=== PATIENT | male | born 2000 | race Caucasian/White ===

== ENCOUNTER 2023-12-20 18:43 | Emergency (ER) | payer OTHER, SELFPAY ==
[2023-12-20 19:03] VITALS: BP 125/78; PULSE 58; RESP 18; TEMP 36.9; O2SAT 99; BMI 22.9
--- NOTE | 2023-12-20 19:44 | DI.RAD.S_ITS ---
PROCEDURE: XR HAND RT MIN 3V INDICATIONS: crush injury TECHNIQUE: Four views of the hand acquired. COMPARISON: None. FINDINGS: Bones: No acute fractures or dislocations. Carpal bones are normally aligned. No suspicious bony lesions. Soft tissues: No suspicious soft tissue calcifications. Mild soft tissue edema is seen in the thumb. IMPRESSION: No acute osseous abnormality. If there is continued clinical concern or persistent symptoms, repeat radiographs or cross-sectional imaging (e.g. CT, MRI) may be helpful for further evaluation. Approved by: Aubrey Mendez M.D. on 12/20/2023 at 20:17
--- NOTE | 2023-12-20 19:44 | ED.UPPEXIN ---
HPI - Extremity Injury (Upper) General Chief Complaint: Extremity Injury, Upper Stated Complaint: wants blister under thumnail drained Time Seen by Provider: 12/20/23 18:52 Source: patient Mode of arrival: Ambulatory History of Present Illness HPI narrative: 23-year-old male presents for drainage of right thumb subungual hematoma. 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 He is up-to-date on his tetanus shot. Review of Systems Review of Systems Narrative: See HPI Patient History alcohol intake frequency: holidays/special occasions only Substance Use Type: does not use Exam Initial Vital Signs Initial Vital Signs: Vital Signs Temperature 98.5 F 12/20/23 19:03 Pulse Rate 58 L 12/20/23 19:03 Respiratory Rate 18 12/20/23 19:03 Blood Pressure 125/78 12/20/23 19:03 Pulse Oximetry 99 12/20/23 19:03 Oxygen Delivery Method Room Air 12/20/23 19:03 Const: Awake, alert, no acute distress, nontoxic appearing MSK: Subungual hematoma right thumb without nail bed injury Skin: Warm, Dry, superficial abrasion adjacent to right thumbnail without laceration Neuro: AO x3, CN II-XII grossly intact, moves all extremities Procedures Nail Trephination Location (finger): right and thumb Sterile prep: betadine Method of drainage: nail cautery Procedure successful: Yes Patient tolerated procedure: well and no complications Course Orders Ordered: ED Orders 12/20/23 19:44 XR hand RT min 3V Stat Vital Signs Vital signs: Vital Signs - 8 hr 12/20/23 19:03 12/20/23 19:45 Temperature 98.5 F Pulse Rate 58 L 69 Respiratory Rate 18 Blood Pressure 125/78 130/82 Pulse Oximetry 99 100 Oxygen Delivery Method Room Air Room Air MDM - Extremity Injury (Upper) Differential Diagnosis Differential diagnosis: Likely finger sprain, dislocation of finger and fracture of hand MDM Narrative Medical decision making narrative: Subungual hematoma after slamming finger against drywall. Trephinated with drainage of blood and relief of pressure. Nail bed is intact. X-ray showed no acute fracture. L and I paperwork filled out Discharge Plan Departure Patient Disposition: Home Clinical Impression: Hematoma, subungual, thumb, right Instructions: DI for Subungual Hematoma Activity Restrictions/Additional Instructions: Soak your finger in warm clean water 2 to 3 times a day for a week. Wear a Band-Aid over the affected finger when working. Stand Alone Forms: Patient Portal/API
[2023-12-20 19:45] VITALS: BP 130/82; PULSE 69; O2SAT 100
--- NOTE | 2023-12-20 19:45 | PC.NURSE ---
pt states he smashed his finger in some drywall sheets at work. took 6 ibuprofen right away and has iced it throughout the day. he was seen at the walk in clinic and sent to ER for xrays in case finger was broken. no loss of sensation on finger tip and able to move all joints, though limited due to pain
== END 2023-12-20 20:13 | disposition home or self-care (01) ==
PROVIDERS: Emergency Provider Emergency Medicine
DX: S60.111A Contusion of right thumb with damage to nail, initial encounter (principal); W23.0XXA Caught, crushed, jammed, or pinched between moving objects, initial encounter
CPT/HCPCS: 11740; 73130; 99281; 99283

== ENCOUNTER 2024-02-10 18:30 | Emergency (ER) | payer OTHER, SELFPAY ==
[2024-02-10 18:46] VITALS: BP 131/74; PULSE 86; RESP 16; TEMP 37; O2SAT 99; BMI 22.3
--- NOTE | 2024-02-10 18:49 | DI.RAD.S_ITS ---
PROCEDURE: XR FINGER RT MIN 2V INDICATIONS: thinks he smashed it TECHNIQUE: AP hand, 2 views of the 2nd finger(s) acquired. COMPARISON: X-ray right hand, 12/21/2023. FINDINGS: Bones: No fractures or dislocations. No suspicious bony lesions. Soft tissues: No suspicious soft tissue calcifications. IMPRESSION: No acute bony abnormality. If clinical symptoms persist or clinical suspicion for pathology is high, a repeat examination in 7-10 days is suggested for further evaluation. Dictated by: Chanel Ch M.D. on 02/10/2024 at 19:38 Approved by: Chanel Ch M.D. on 02/10/2024t 19:39
--- NOTE | 2024-02-10 20:32 | ED_ITS ---
HPI - General Adult General Chief complaint: Extremity Injury, Upper Stated complaint: right index finger pain Time Seen by Provider: 02/10/24 20:12 Source: patient Mode of arrival: Ambulatory History of Present Illness HPI narrative: 23-year-old male here evaluation redness and discomfort to the tip of his right index finger. He thinks that potentially he could have hit when he was working on his truck a couple days ago. No fevers. No drainage from the area. Related Data Previous Rx's Medication Instructions Recorded cephalexin 500 mg capsule 500 mg PO QID 5 days #20 caps 02/10/24 Allergies Allergy/AdvReac Type Severity Reaction Status Date / Time No Known Drug Allergies Allergy Verified 02/10/24 18:48 Review of Systems Musculoskeletal Musculoskeletal: Reports system reviewed and no additional complaints, except as documented Integumentary/Breasts Skin/Breast: Reports system reviewed and no additional complaints, except as documented Neurologic Neurologic: Reports system reviewed and no additional complaints, except as documented Patient History alcohol intake frequency: holidays/special occasions only Substance Use Type: does not use Exam Initial Vital Signs Initial Vital Signs: Vital Signs Temperature 98.6 F 02/10/24 18:46 Pulse Rate 86 02/10/24 18:46 Respiratory Rate 16 02/10/24 18:46 Blood Pressure 131/74 02/10/24 18:46 Pulse Oximetry 99 02/10/24 18:46 Oxygen Delivery Method Room Air 02/10/24 18:46 Skin Other: Erythema noted to the distal aspect of the right index finger specifically on the dorsum. Extrem Other: Swelling and redness to the right index finger. All of the findings or distal to the DIPJ joint. There was no nail bed involvement. Course Orders Ordered: ED Orders 02/10/24 18:49 XR finger RT min 2V Stat Discontinued Medications Cephalexin HCl (Cephalexin 250 Mg Capsule) 500 mg PO NOW ONE Stop: 02/10/24 20:33 Last Admin: 02/10/24 20:40 Dose: 500 mg Documented By: GEORGINA Vital Signs Vital signs: Vital Signs - 8 hr 02/10/24 18:46 02/10/24 20:49 Temperature 98.6 F Pulse Rate 86 63 Respiratory Rate 16 16 Blood Pressure 131/74 129/71 Pulse Oximetry 99 99 Oxygen Delivery Method Room Air Room Air Medical Decision Making Imaging Data Extremity x-ray #1: Radiologist's Impression: PROCEDURE: XR FINGER RT MIN 2V INDICATIONS: thinks he smashed it TECHNIQUE: AP hand, 2 views of the 2nd finger(s) acquired. COMPARISON: X-ray right hand, 12/21/2023. FINDINGS: Bones: No fractures or dislocations. No suspicious bony lesions. Soft tissues: No suspicious soft tissue calcifications. IMPRESSION: No acute bony abnormality. If clinical symptoms persist or clinical suspicion for pathology is high, a repeat examination in 7-10 days is suggested for further evaluation. [facility] Narrative Medical decision making narrative: X-ray shows no signs of fracture. His exam is most consistent with a paronychia but there is some surrounding erythema consistent with cellulitis. He has a soft pad of the finger so I have low suspicion for Felon. Was able to drain a small amount of purulent material from the area. Because of the surrounding erythema will place him on antibiotics. First dose given here in the ER. He was given return precautions and follow-up instructions. He expressed understanding and agreement. Discharge Plan Departure Patient Disposition: Home Clinical Impression: Paronychia Instructions: DI for Paronychia Activity Restrictions/Additional Instructions: Take the antibiotics as directed. I do recommend that you keep your hands clean with soap and water. Return to the emergency department for new or worsening symptoms. Prescriptions: New cephalexin 500 mg capsule 500 mg PO QID 5 Days Qty: 20 0RF Stand Alone Forms: Patient Portal/API
[2024-02-10] MEDS: cephALEXin 250 MG CAPSULE 500 MG PO (20:40)
[2024-02-10 20:49] VITALS: BP 129/71; PULSE 63; RESP 16; O2SAT 99
== END 2024-02-10 20:51 | disposition home or self-care (01) ==
PROVIDERS: Emergency Provider Emergency Medicine
DX: L03.011 Cellulitis of right finger (principal)
CPT/HCPCS: 73140; 99283

== ENCOUNTER 2024-10-02 13:40 | Emergency (ER) | payer OTHER, SELFPAY ==
[2024-10-02 13:47] VITALS: BP 126/73; PULSE 55; RESP 18; TEMP 36.9; O2SAT 100; BMI 22.3
--- NOTE | 2024-10-02 14:07 | ED.WOUNDLAC ---
HPI - Wound/Laceration <Toyin Christensen PA-C - Last Filed: 10/02/24 14:47> General Chief Complaint: Wound/Laceration Stated Complaint: R Arm Laceration Time Seen by Provider: 10/02/24 13:56 Source: patient Mode of arrival: Ambulatory History of Present Illness HPI narrative: 24-year-old male presents with a right arm laceration. He was using a knife to cut a zip tie on a new tool bag. The knife slipped and entered his right forearm. He grabbed it immediately with his hand to control the bleeding. He is left-handed dominant, he is denying any numbness, tingling or loss of sensation, no weakness of the hand, he does admit to being a little squamous when it comes to bleeding he states initially he felt he had an adrenaline [place] but feels better. He is denying any nausea. He is here with his girlfriend's mother. All other systems are reviewed and are negative. Per his records his tetanus is up-to-date as of December 2023 encounter in the emergency department. Related Data Allergies Allergy/AdvReac Type Severity Reaction Status Date / Time No Known Drug Allergies Allergy Verified 02/10/24 18:48 Review of Systems <Toyin Christensen PA-C - Last Filed: 10/02/24 14:47> Review of Systems Narrative: All other systems reviewed and are negative. Patient History <Toyin Christensen PA-C - Last Filed: 10/02/24 14:47> Social History Smoking Status: Never smoker Smoking Status: Never smoker alcohol intake frequency: holidays/special occasions only Exam <Toyin Christensen PA-C - Last Filed: 10/02/24 14:47> Initial Vital Signs Initial Vital Signs: Vital Signs Temperature 98.5 F 10/02/24 13:47 Pulse Rate 55 L 10/02/24 13:47 Respiratory Rate 18 10/02/24 13:47 Blood Pressure 126/73 10/02/24 13:47 Pulse Oximetry 100 10/02/24 13:47 Oxygen Delivery Method Room Air 10/02/24 13:47 Vital signs reviewed and are normal. Const General: cooperative, healthy appearing, comfortable, well developed, well groomed and No acute distress Resp Effort & Inspection: normal respiratory effort and able to speak in complete sentences Auscultation: clear to auscultation bilaterally Cardio Rate: regular rate Rhythm: regular rhythm Skin Other: 1 in linear laceration anterior mid forearm on the right. Subcutaneous fat is seen, small arterial spurter, intermittent, otherwise no active bleeding. No foreign body seen. Neuro Other: Distal neurovascular is grossly intact on the right hand, pinch mechanism is intact. Extrem Right upper extremity: full ROM, normal capillary refill and elbow/forearm Details: normal ROM and laceration (1 in separation anterior mid forearm subcutaneous fat showing no deeper structures); no swelling and no abrasions; no cyanosis and no edema Other: He has full strength against resistance with flexion and extension of his wrist, pinch mechanism is intact, full range of motion to all of his digits, abduction adduction are intact, opposition also intact. <Ruthy Saldivar MD - Last Filed: 10/02/24 15:19> Initial Vital Signs Initial Vital Signs: Vital Signs Temperature 98.5 F 10/02/24 13:47 Pulse Rate 55 L 10/02/24 13:47 Respiratory Rate 18 10/02/24 13:47 Blood Pressure 126/73 10/02/24 13:47 Pulse Oximetry 100 10/02/24 13:47 Oxygen Delivery Method Room Air 10/02/24 13:47 Procedures <Toyin Christensen PA-C - Last Filed: 10/02/24 14:47> Laceration Repair Laceration 1: Site: upper extremity (Right anterior forearm) Side (If applicable): right Size (cm): 2 Description: linear Depth: simple, single layer Local Anesthetic: lidocaine 1% Amount of anesthesia used (mL): 2.5 Pre-repair: wound explored, irrigated extensively and deep structures intact Skin layer closed with: nylon (4-0) Skin layer suture size: 4-0 Number of sutures: 3 Technique: simple, interrupted Subcutaneous layer closed with: vicryl Subcutaneous layer suture size: 4-0 Number of sutures: 3 Technique: simple, interrupted Course <Toyin Christensen PA-C - Last Filed: 10/02/24 14:47> Course Course Narrative: Wound was clean, no foreign body, he tolerated the procedure well, no deeper structures, no tendon involvement. His tetanus is up-to-date. Dressing was applied by this provider a nonadherent dressing, roller gauze and stockinette. Orders Ordered: Discontinued Medications Lidocaine HCl (Lidocaine 1% 20 Ml) 5 ml INJ INTRA-OP ONE Stop: 10/02/24 14:08 Last Admin: 10/02/24 14:12 Dose: Not Given Documented By: KRISTI Lidocaine HCl (Lidocaine 1% (Pf) 5 Ml) 5 ml INJ NOW ONE Stop: 10/02/24 14:11 Last Admin: 10/02/24 14:11 Dose: 5 ml Documented By: KRISTI Vital Signs Vital signs: Vital Signs - 8 hr 10/02/24 13:47 Temperature 98.5 F Pulse Rate 55 L Respiratory Rate 18 Blood Pressure 126/73 Pulse Oximetry 100 Oxygen Delivery Method Room Air <Ruthy Saldivar MD - Last Filed: 10/02/24 15:19> Orders Ordered: Discontinued Medications Lidocaine HCl (Lidocaine 1% 20 Ml) 5 ml INJ INTRA-OP ONE Stop: 10/02/24 14:08 Last Admin: 10/02/24 14:12 Dose: Not Given Documented By: KRISTI Lidocaine HCl (Lidocaine 1% (Pf) 5 Ml) 5 ml INJ NOW ONE Stop: 10/02/24 14:11 Last Admin: 10/02/24 14:11 Dose: 5 ml Documented By: KRISTI Vital Signs Vital signs: Vital Signs - 8 hr 10/02/24 13:47 Temperature 98.5 F Pulse Rate 55 L Respiratory Rate 18 Blood Pressure 126/73 Pulse Oximetry 100 Oxygen Delivery Method Room Air Discharge Plan Departure Patient Disposition: Home Clinical Impression: Laceration Instructions: DI for Laceration Repair Activity Restrictions/Additional Instructions: Leave the current dressing on for the next 24-48 hours then take it down, please keep it dry during this time, elevate minimize throbbing or pain, you can take Tylenol or ibuprofen as needed for pain. Once you remove the dressing, you may gently cleanse, just no swimming or submersion. Cover with a regular bandage during the day, you may air dry at night. I would avoid any heavy lifting and limit your use of the right arm for at least the 1st 2 days. Sutures should come out in about 7-10 days. You may return here or our walk-in clinic or any medical clinic or your PCP. Please do not hesitate to return if you have any increased pain, swelling, bleeding, any warmth to the area, you feel unwell or have any other new worrisome symptoms. Stand Alone Forms: Patient Portal/API/Survey, Work Release Note ED Sign-out <Ruthy Saldivar MD - Last Filed: 10/02/24 15:19> Cosign ED Attending Cosignature Attestation: I was immediately available in the department for consultation throughout this patient's visit. Ruthy Saldivar MD
[2024-10-02] MEDS: LIDOCAINE 1% (PF) 5 ML INJ (14:11)
== END 2024-10-02 14:47 | disposition home or self-care (01) ==
PROVIDERS: Emergency Provider Physician Assistant Medical
DX: S51.811A Laceration without foreign body of right forearm, initial encounter (principal); W26.0XXA Contact with knife, initial encounter; Y93.89 Activity, other specified
CPT/HCPCS: 12031; 99283

== ENCOUNTER → 2024-12-29 14:04 | Outpatient (CLI) | payer SELFPAY ==
[2024-12-29 15:22] LABS: Influenza A - CEPHEID Flu A NEGATIVE (NEGATIVE); Influenza B - CEPHEID Flu B NEGATIVE (NEGATIVE); Respiratory Syncytial Virus Negative (Negative)
[2024-12-29 15:24] LABS: COVID-19 CEPHEID 4-PLEX PCR Negative (Negative)
== END ==
PROVIDERS: Visit Provider Physician Assistant Surgical
DX: J35.1 Hypertrophy of tonsils (principal)
CPT/HCPCS: 0241U; 87070; 87147

== ENCOUNTER 2025-03-11 18:15 | Emergency (ER) | payer BC, SELFPAY ==
[2025-03-11 18:18] VITALS: BP 144/88; PULSE 62; RESP 16; TEMP 36.8; O2SAT 100; BMI 22.3
--- NOTE | 2025-03-11 18:24 | DI.RAD.S_ITS ---
PROCEDURE: XR CHEST 1V INDICATIONS: Chest Pain TECHNIQUE: One view of the chest was acquired. COMPARISON: None. FINDINGS: Surgical changes and devices: None. Lungs and pleura: Lungs are clear. No pleural effusions or pneumothorax. Mediastinum: Mediastinal contours appear normal. Heart size is normal. Bones and chest wall: No suspicious bony lesions. Overlying soft tissues appear unremarkable. IMPRESSION: No acute cardiopulmonary abnormality is seen. Dictated by: Hunter Rm M.D. on 03/11/2025 at 19:49 Approved by: Hunter Rm M.D. on 03/11/2025 at 19:50
--- NOTE | 2025-03-11 18:24 | EKG_ITS ---
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
[2025-03-11 19:46] LABS: INR 1.1 (0.9-1.3)
[2025-03-11 19:47] LABS: Add Manual Diff / Slide Review NO; Basophils Absolute Auto 0 /uL (0-100); Basophils Percent Auto 0.3 % (0-2); Eosinophils Absolute Auto 0 /uL (0-450); Eosinophils Percent Auto 0.3 % (2-4); Hematocrit 39.9 % (41-53); Hemoglobin 13.5 g/dL (13.5-17.5); Lymphocytes Absolute Auto 1900 /uL (1100-4500); Mean Corpuscular HGB Conc 33.8 % (30-36); Mean Corpuscular Hemoglobin 31.7 PG (26-34); Mean Corpuscular Volume 93.9 fL (80-100); Monocytes Absolute Auto 600 /uL (0-900); Monocytes Percent Auto 7.8 % (3-14); Neutrophils Absolute Auto 5500 /uL (1500-7000); Neutrophils Percent Auto 67.6 % (50-75); Platelet Count 183 X10^3/uL (150-400); Red Blood Cell Count 4.25 X10^6/uL (4.5-5.9); White Blood Cell Count 8.1 X10^3/uL (4.5-11.0)
[2025-03-11 19:49] LABS: PTT Partial Thromboplastin Tim 30 SECONDS (25.1-36.5)
[2025-03-11 19:51] LABS: Alanine Aminotransferase 18 IU/L (<50); Albumin 4.8 g/dL (3.5-5.0); Albumin Globulin Ratio 1.6 (1.0-2.8); Alkaline Phosphatase 61 U/L (38-126); Aspartate Aminotransferase 28 IU/L (17-59); BUN Creatinine Ratio 21.5 (6-22); Bilirubin Total 0.8 mg/dL (0.2-1.3); Blood Urea Nitrogen 17 mg/dL (9-20); Calcium 9.7 mg/dL (8.4-10.2); Carbon Dioxide 27 mmol/L (22-32); Chloride 101 mmol/L (98-107); Creatine Kinase 121 U/L (55-170); Estimated Glomerular Filt Rate > 60 mL/min (>60); Glucose 79 mg/dL (70-99); HEMOLYSIS < 15 (0-50); Lipase 52 U/L (23-300); Potassium 4.5 mmol/L (3.4-5.1); Sodium 139 mmol/L (137-145); Total Protein 7.8 g/dL (6.3-8.2)
[2025-03-11 20:03] LABS: NT-proBNP (BNP-Adult 18+) < 20 pg/mL (<125); Troponin I < 0.012 ng/mL (0.01-0.034)
[2025-03-11 21:34] VITALS: BP 131/77; PULSE 60; RESP 17; O2SAT 100
--- NOTE | 2025-03-11 21:42 | PC.NURSE ---
Pt declined respiratory panel. states he has no respiratory symptoms.
--- NOTE | 2025-03-11 21:54 | ED_ITS ---
HPI - Chest Pain General Chief Complaint: Chest Pain Stated Complaint: Chest pain for 3wks Time Seen by Provider: 03/11/25 18:41 Source: patient Mode of arrival: Ambulatory History of Present Illness HPI narrative: 24-year-old male with left anterior chest discomfort for the last 3 weeks, pretty much constant, not particularly worse with inspiration or truncal movements, sometimes worse with left upper extremity movements. He had not tried any regular medications for this. No known coronary artery disease, diabetes, high blood pressure, cholesterol problems. No history of blood clots to legs or lungs, and no leg pain or swelling symptoms. No fevers or chills or cough. Works in heavy lifting and twisting activities. No specific new job activity recalled, no blunt trauma. No aortic problems known. No history of asthma or wheezing, no use of inhalers in the past. No history of gastroesophageal reflux, not taking antacids, no radiation to the back, no change with foods. Related Data Allergies Allergy/AdvReac Type Severity Reaction Status Date / Time No Known Drug Allergies Allergy Verified 03/11/25 18:18 Patient History Social History Smoking Status: Former smoker Smoking Status: Former smoker alcohol intake frequency: holidays/special occasions only Exam Narrative Exam Narrative: GENERAL: Well-developed patient, in mild distress. HEAD: Atraumatic. Normocephalic. EYES: Pupils equal round and reactive. Extraocular motions intact. No scleral icterus. No injection or drainage. ENT: Nose without bleeding, purulent drainage. Throat without erythema, tonsillar hypertrophy or exudate. Airway patent. NECK: Trachea midline. Non tender CARDIOVASCULAR: Regular rate and rhythm without murmurs, gallops, or rubs. RESPIRATORY: Clear to auscultation. Breath sounds equal bilaterally. No wheezes, rales, or rhonchi. No tenderness to anterior chest palpation, no skin changes or rash. GASTROINTESTINAL: Abdomen soft, non-tender, nondistended. EXTREMITIES: No edema or joint tenderness. Some discomfort with pushing down extended upper extremities on the left against resistance. No lifting up discomfort with left upper extremity extended position against resistance. BACK: Nontender without deformity or crepitance. No flank tenderness. NEURO: AOx3. Motor functions grossly nonfocal SKIN: No rash or erythema of visible areas Initial Vital Signs Initial Vital Signs: Vital Signs Temperature 98.3 F 03/11/25 18:18 Pulse Rate 62 03/11/25 18:18 Respiratory Rate 16 03/11/25 18:18 Blood Pressure 144/88 H 03/11/25 18:18 Pulse Oximetry 100 03/11/25 18:18 Oxygen Delivery Method Room Air 03/11/25 18:18 Course Orders Ordered: ED Orders 03/11/25 18:24 XR chest 1V Stat EKG-12 Lead Stat 03/11/25 19:30 Complete Blood Count AUTO DIFF Stat Comprehensive Metabolic Panel Stat Lipase Stat Magnesium Stat NT-proBNP (BNP-Adult 18+) Stat PTT Partial Thromboplastin [place] Stat Prothrombin Time INR Stat Troponin & CK Cardiac Panel Stat Discontinued Medications Aspirin (Aspirin 81 Mg Chew Tab) 324 mg PO NOW ONE Stop: 03/11/25 18:25 Last Admin: 03/11/25 22:28 Dose: Not Given Documented By: GEORGINA Ketorolac Tromethamine (Ketorolac 30 Mg/Ml Vial) 15 mg IV NOW ONE Stop: 03/11/25 22:13 Last Admin: 03/11/25 22:37 Dose: Not Given Documented By: GEORGINA Vital Signs Vital signs: Vital Signs - 8 hr 03/11/25 18:18 03/11/25 21:34 03/11/25 21:34 Temperature 98.3 F Pulse Rate 62 60 Respiratory Rate 16 17 Blood Pressure 144/88 H 131/77 Pulse Oximetry 100 100 Oxygen Delivery Method Room Air Room Air 03/11/25 22:00 03/11/25 22:00 Temperature Pulse Rate 62 Respiratory Rate 24 Blood Pressure 119/67 Pulse Oximetry 99 Oxygen Delivery Method MDM - Chest Pain Lab Data Lab results narrative: White blood cell count 8100, hemoglobin 13.5, platelets adequate. Glucose 79. Normal renal function. Normal electrolytes. Liver functions and lipase normal. Troponin negative/unmeasurable. 03/11/25 19:30 03/11/25 19:30 Labs: Lab Results 03/11/25 Range/Units 19:30 WBC 8.1 (4.5-11.0) X10^3/uL RBC 4.25 L (4.5-5.9) X10^6/uL Hgb 13.5 (13.5-17.5) g/dL Hct 39.9 L (41-53) % MCV 93.9 (80-100) fL MCH 31.7 (26-34) PG MCHC 33.8 (30-36) % RDW 13.0 (11.6-14.8) % Plt Count 183 (150-400) X10^3/uL Neut % (Auto) 67.6 (50-75) % Lymph % (Auto) 24.0 L (25-40) % [place] % (Auto) 7.8 (3-14) % Eos % (Auto) 0.3 L (2-4) % Baso % (Auto) 0.3 (0-2) % Neut # (Auto) 5500 (8698-8252) /uL Lymph # (Auto) 1900 (8660-5588) /uL [place] # (Auto) 600 (0-900) /uL Eos # (Auto) 0 (0-450) /uL Baso # (Auto) 0 (0-100) /uL PT 13.0 H (9.4-12.5) SECONDS INR 1.1 (0.9-1.3) APTT 30 (25.1-36.5) SECONDS Sodium 139 (137-145) mmol/L Potassium 4.5 (3.4-5.1) mmol/L Chloride 101 (98-107) mmol/L Carbon Dioxide 27 (22-32) mmol/L BUN 17 (9-20) mg/dL Creatinine 0.79 (0.66-1.25) mg/dL Estimated GFR > 60 (>60) mL/min BUN/Creatinine Ratio 21.5 (6-22) Glucose 79 (70-99) mg/dL Calcium 9.7 (8.4-10.2) mg/dL Magnesium 2.0 (1.6-2.3) mg/dL Total Bilirubin 0.8 (0.2-1.3) mg/dL AST 28 (17-59) IU/L ALT 18 (<50) IU/L Alkaline Phosphatase 61 (38-126) U/L Total Creatine Kinase 121 (55-170) U/L Troponin I < 0.012 (0.01-0.034) ng/mL NT-Pro-B Natriuret Pep < 20 (<125) pg/mL Total Protein 7.8 (6.3-8.2) g/dL Albumin 4.8 (3.5-5.0) g/dL Globulin 3.0 (1.7-4.1) g/dL Albumin/Globulin Ratio 1.6 (1.0-2.8) Lipase 52 (23-300) U/L Imaging Data Chest x-ray: Radiologist's Impression: [address] [address] XRay Report Signed Patient: Amaury Hampton MR#: [id number] : 2000 Acct:[id number] Age/Sex: 24 / M Date of Service: 03/11/25 Loc: ED Accession Number: [id number] Procedure: XR chest 1V Ordering Provider: Omar Hyman MD PROCEDURE: XR CHEST 1V INDICATIONS: Chest Pain TECHNIQUE: One view of the chest was acquired. COMPARISON: None. FINDINGS: Surgical changes and devices: None. Lungs and pleura: Lungs are clear. No pleural effusions or pneumothorax. Mediastinum: Mediastinal contours appear normal. Heart size is normal. Bones and chest wall: No suspicious bony lesions. Overlying soft tissues appear unremarkable. IMPRESSION: No acute cardiopulmonary abnormality is seen. Dictated by: Hunter Rm M.D. on 03/11/2025 at 19:49 Approved by: Hunter Rm M.D. on 03/11/2025 at 19:50 ECG Data Attestation: I personally reviewed and interpreted this ECG as follows: Interpretation: 1827, normal sinus rhythm with sinus arrhythmia, ventricular rate 64. No obvious ST segment elevation or depression changes obvious. [place] 146, QRS 90, QTC 414. MDM Narrative Medical decision making narrative: 24-year-old male with 3 weeks' duration nonpleuritic left anterior chest pain, some reproducibility of the pain with extension of the left extremity and flexion against resistance. Reports regular heavy lifting activities at work. Clinically suspect chest wall etiology of his symptoms. DDx consider chest wall discomfort, doubt ACS, doubt VTE, doubt aortic etiology, seems unlikely also for gastroesophageal reflux, unlikely for RAD/pneumonia. Screening EKG unremarkable, screening labs including troponin negative. Chest x-ray ordered from triage negative, see radiology report. Offered Toradol, initially agreed, then decided he wanted to forego the medication, and to be discharged home. Consider use of [id number] ibuprofen as needed. Recheck symptoms advised in the next couple of days. Offered work restriction, declined for now. Return precautions discussed. Discharged home per patient request. Discharge Plan Departure Patient Disposition: Home Clinical Impression: Chest wall pain Activity Restrictions/Additional Instructions: Three weeks' duration left anterior chest discomfort. Some reproducibility of your symptoms with extension of the left upper extremity and downward pressure against resistance. Suspect musculoskeletal cause. Chest x-ray, EKG and lab testing unremarkable. Clinically seems unlikely for acute coronary syndrome of your heart vessels. Clinically seems unlikely to have abnormal blood clotting such as legs or lungs. No wheezing or bronchospasm, doubt need for inhaler at this time. Could consider reflux esophagitis but usually not lateral, and not associated with reproducibility with musculoskeletal maneuvers. Consider trial of [id number] ibuprofen for now. Frequent heavy lifting and twisting like motions at work, we did discuss limitation of work, work restrictions, declined for now. Recheck symptoms with your regular doctor in the next few days. Return to this/nearest emergency department for any change worsening symptoms or any concerns prior. Referrals: Miscellaneous,[facility] [Primary Care Provider, Medical] Stand Alone Forms: Patient Portal/API
[2025-03-11 22:00] VITALS: BP 119/67; PULSE 62; RESP 24; O2SAT 99
== END 2025-03-11 22:44 | disposition home or self-care (01) ==
PROVIDERS: Emergency Medicine; Emergency Provider Emergency Medicine
DX: R07.89 Other chest pain (principal)
CPT/HCPCS: 71045; 80053; 82550; 83690; 83735; 83880; 84484; 85025; 85610; 85730; 93005; 99283; 99284

== ENCOUNTER → 2025-03-17 18:42 | Outpatient (CLI) | payer BC, SELFPAY ==
[2025-03-17 21:28] LABS: Urine N gonorrhoeae NOT DETECTED
[2025-03-17 21:29] LABS: Urine Chlamydia DETECTED
== END ==
PROVIDERS: Visit Provider Nurse Practitioner Family
DX: Z11.3 Encounter for screening for infections with a predominantly sexual mode of transmission (principal); R30.0 Dysuria
CPT/HCPCS: 87086; 87210; 87491; 87591

== ENCOUNTER → 2025-03-31 16:54 | Outpatient (CLI) | payer BC, SELFPAY ==
[2025-03-31 19:07] LABS: HIV 1 & 2 Ab/Ag 4th Gen Combo NEGATIVE (NEGATIVE); Hep C Virus Ab w/Reflex Quant NEGATIVE s/c (NEGATIVE); Hepatitis B Surface Antigen NEGATIVE s/c (NEGATIVE)
== END ==
LOC: LAB 16:54
PROVIDERS: Referring Provider Nurse Practitioner Family; Visit Provider Nurse Practitioner Family
DX: R30.0 Dysuria (principal)
CPT/HCPCS: 36415; 86592; 86803; 87340; 87389; 87529